=== PATIENT | male | born 1955 | race Caucasian/White ===

== ENCOUNTER 2024-12-07 04:14 | Emergency (ER) | payer MEDICARE, SELFPAY ==
[2024-12-07 04:17] VITALS: BP 175/77; PULSE 59; RESP 14; TEMP 36.1; O2SAT 98; BMI 47.7
--- NOTE | 2024-12-07 04:24 | EDS_ITS ---
HPI History of Present Illness Chief Complaint: Lower Extremity Injury [facility] Medical History (Updated 12/07/24 @ 04:[address] Evert Chapman, DO) Hypertension Diabetes Allergy/AdvReac Type Severity Reaction Status Date / Time Penicillins (PCN) Allergy HIVES Verified 12/07/24 04:17 Social History Smoking Status: Never smoker EXAM Physical Exam Const Vital Signs: 12/07/24 04:17 12/07/24 06:03 Temperature 97 F L 98 F Temperature Source Oral Pulse Rate 59 L 81 Respiratory Rate 14 14 Blood Pressure 175/77 H 167/81 H Blood Pressure Mean 109 109 Pulse Ox 98 98 Oxygen Delivery Method Room Air [facility] Narrative Medical decision making narrative: HISTORY OF PRESENT ILLNESS: Chief complaint: Right hip 69-year-old male presents right hip pain after fall yesterday in tub. Notes mechanical fall. Denies head trauma or loss of consciousness. No right hip pain and back pain REVIEW OF SYSTEMS: Pertinent positives: Right hip pain, back pain Pertinent negatives: Head trauma, LOC, neck pain PHYSICAL EXAM: Nursing triage notes reviewed, Vital signs reviewed Constitutional: please see mdm HENT: MMM Eyes: Pupils equal round and reactive to light, Extraocular muscles intact Neck: No stridor, no JVD, full neck ROM Lungs: Clear to auscultation, No wheezing or rales. No increased work of breathing, no conversational dyspnea, no accessory muscle use, no nasal flaring. No respiratory distress noted Heart: Regular rate and rhythm, No murmurs, No rubs and No gallops, 2+ distal pulses (radial, femoral, posterior tibial) in all extremities Abdomen: Soft, there is no tenderness, rigidity, rebound or guarding, no obvious peritoneal signs, no palpable pulsatile abdominal masses, no auscultated abdominal bruit : No CVAT Extremities: No edema, symmetric lower extremity length, no obvious rotatory changes such as external rotation of any lower extremity. Back: No midline step-offs or deformities. TTP to the right lower lumbar musculature. Neuro: N intact sensation L1-S1 dermatomal distributions. Intact 5/5 strength in hip flexion (T12-L3). Knee extension (L2-L4). Ankle dorsiflexion (L4-L5). Ankle plantar flexion (S1). Great toe extension (L5). 2+ patellar and Achilles DTRs. Skin: No rash or lesions noted MEDICAL DECISION MAKING: Chief Complaint: please see HPI External records reviewed: No prior imaging is noted Factors affecting care: Allergic to penicillins Social determinants of health: none History obtained from others: none Consults: none [facility] Narrative: Patient was initially hemodynamically stable, afebrile and nontoxic-appearing. Exam with TTP over right hip, right greater trochanter, right lower lumbar region I considered the following differential diagnosis: Lumbar spine fracture, hip fracture dislocation, pelvic fracture dislocation, rib contusion back contusion I obtained imaging to further determine if the patient was suffering from a life-threatening etiology. Initially resuscitated the patient's pain with oxycodone offered CT scan. Patient is alert and orient x 3 he noted he could not do a CT scan secondary to claustrophobia. I explained to him a CT scan is not MRI. The relatively large machine is very quick. Patient notes he cannot undergo a CT scan by any means. Therefore I did not pursue a CT scan of the lumbar spine at this time. ALL IMAGES (IF OBTAINED) HAVE BEEN PERSONALLY REVIEWED AND INTERPRETED BY MYSELF. X-ray of the right hip and pelvis is read and reviewed personally myself show no evidence of obvious bony abnormality. Awaiting radiologist read The synthesis of the patient's history, physical exam, imaging studies suggest right hip contusion. RICE therapy recommended. Close PCP follow-up recommended. Strict return precautions discussed. The patient and/or family, caregivers express understanding. The patient and/or family, caregivers agrees with the plan. Shared decision making: I will have a discussion with the patient and or visitors regarding risk/benefits of further testing or admission. They will be made aware of of the risk/benefits inherent in this decision they will be given the opportunity to voice understanding. Total critical care time today provided was at least 0 minutes. This excludes separately billable procedures. Critical care time (if documented) is secondary to the patient having high probability of clinically significant/life threatening deterioration in the patient's condition which required my urgent intervention. Impression: 1. Acute hip pain 2. Right hip contusion Dispo: discharged home This note was generated with [employer] dictation software. It may contain incorrect words, spelling, and punctuation that were not noted in review of the chart prior to signing. Radiography Diagnostic Testing: Clinical Impression(s) from Imaging Studies Hip/Pelvis X-Ray 12/07/24 04:50 IMPRESSION: NO ACUTE FRACTURE OR DISLOCATION. If acute hip fracture is suspected after a fall or minor trauma and initial radiographs are negative then MRI of the pelvis and affected hip without IV contrast or CT of the pelvis and hips without IV contrast is usually appropriate as the next imaging study. (ACR Appropriateness Criteria: Acute Hip Pain-Suspected Fracture 2018) Reading Location: [place] [address] Discharge Plan Triage Chief Complaint: Lower Extremity Injury ED Provider: Evert Chapman Dx/Rx/DC Orders Clinical Impression: Acute hip pain Instructions: ED Hip Contusion Primary Care Provider: Chadd Johnson Referrals: Chadd Johnson MD [Primary Care Provider] - Activity Restrictions/Additional Instructions: Thank you for trusting us with your care today! Please take Tylenol (2 pills, 650 mg), ibuprofen (2 pills, 400 mg) every 6 hours as needed for pain and fever control. Please return to the emergency department if your symptoms change or worsen. Please follow with your primary care physician for further outpatient evaluation and management. Print Language: Greenlandic Disposition Disposition: Home, Self Care Discharge Date/Time: 12/07/24 06:05
--- NOTE | 2024-12-07 04:50 | RAD_ITS ---
PROCEDURE: HIP, UNI W/ PELVIS 2-3 VIEWS 12/07/2024 REASON FOR EXAM: PAIN AFTER FALL R/O FX TECHNIQUE: HIP, UNI W/ PELVIS 2-3 VIEWS COMPARISON: None FINDINGS: Alignment is within normal limits. Mild hip joint space narrowing and subtle acetabulum sclerosis. No focal lesion noted. Soft tissues appear normal. RAD/HIP, UNI W/ Pelvis 2-3 Views IMPRESSION: NO ACUTE FRACTURE OR DISLOCATION. If acute hip fracture is suspected after a fall or minor trauma and initial rad iographs are negative then MRI of the pelvis and affected hip without IV contrast or CT of the pelvis and hips without IV contra st is usually appropriate as the next imaging study. (ACR Appropriateness Criteria: Acute Hip Pain-Suspected Fracture 2018) [facility]
[2024-12-07 06:03] VITALS: BP 167/81; PULSE 81; RESP 14; TEMP 36.6; O2SAT 98
== END 2024-12-07 06:05 | disposition home or self-care (01) ==
PROVIDERS: Emergency Provider Emergency Medicine; PCP Family Medicine; Visit Provider Emergency Medicine
DX: S70.01XA Contusion of right hip, initial encounter (principal); W18.2XXA Fall in (into) shower or empty bathtub, initial encounter
CPT/HCPCS: 73502; 99282